=== PATIENT | male | born 1950 | race Caucasian/White ===

== ENCOUNTER 2022-03-14 08:00 | Outpatient (CLI) | payer MEDICARE ==
[2022-03-14 18:05] LABS: ALBUMIN 4.2 g/dL (3.2-5.5); ALBUMIN/GLOBULIN RATIO 1.3 (1.0-2.2); BILIRUBIN,TOTAL 0.7 mg/dL (0.2-1.0); CALCIUM 9.3 mg/dL (8.5-10.3); POTASSIUM 3.7 mmol/L (3.5-5.0); TOTAL PROTEIN 7.4 g/dL (6.7-8.2)
== END 2022-03-14 23:59 | disposition home or self-care (01) ==
LOC: LAB.N 08:00
PROVIDERS: ATTEND Nurse Practitioner
DX: M79.604 Pain in right leg (principal)
CPT/HCPCS: 36415; 80053; 85379